=== PATIENT | female | born 1980 | race Two or more races ===

== ENCOUNTER 2017-09-02 02:03 | Emergency (ER) | payer MEDICAID, OTHER ==
[~2017-09-02] VITALS: Ht 165.1 cm; Wt 65.3 kg
[~2017-09-02 02:03] MED LIST: FLUR100T3 PO
[2017-09-02] MEDS ORDERED: METRONIDAZOLE 500 MG TABLET (02:21)
[2017-09-02] MEDS ORDERED: ONDANSETRON ODT 4 MG TAB.RAPDIS SL ONE (02:30)
[2017-09-02] MEDS ORDERED: FAMOTIDINE. 20 MG/2 ML VIAL IV ONE ×2 (02:30→02:51)
[2017-09-02] MEDS ORDERED: KETOROLAC TROMETHAMINE 15 MG INJ IV ONE (02:30)
[2017-09-02] MEDS ORDERED: ONDANSETRON 4 MG/2 ML VIAL ONE (02:50)
[2017-09-02] MEDS ORDERED: KETOROLAC TROMETHAMINE 30 MG INJ ONE (02:50)
[2017-09-02 02:59] LABS: BASOPHILS % (AUTO) 0.5 % (0.0-2.0); EOSINOPHILS # (AUTO) 0.1 K/uL (0.0-0.7); EOSINOPHILS % (AUTO) 1.5 % (0.0-7.0); LYMPHOCYTES # (AUTO) 1.2 K/uL (20.0-40.0); LYMPHOCYTES % (AUTO) 13.9 % (20.5-51.5); MEAN CORPUSCULAR HGB CONC 34 g/dL (32.3-35.6); MEAN CORPUSCULAR VOLUME 84.7 fL (75.5-95.3); MONOCYTES # (AUTO) 0.7 K/uL (2.0-10.0); MONOCYTES % (AUTO) 7.5 % (0.0-11.0); NEUTROPHILS # (AUTO) 6.8 K/uL (1.8-8.9); NEUTROPHILS % (AUTO) 76.6 % (38.5-71.5); PLATELET COUNT (AUTO) 166 K/uL (179-408); RED BLOOD CELL COUNT(AUTO) 4.49 MIL/uL (3.63-4.92); WHITE BLOOD COUNT (AUTO) 8.9 K/uL (3.8-11.8)
[2017-09-02 03:09] LABS: CREATININE 0.7 mg/dL (0.6-1.3); POTASSIUM 4.2 mmol/L (3.5-5.1)
--- NOTE | 2017-09-02 03:13 | NUR ---
PT REPORTING LESS ABDOMINAL PAIN AFTER ADMINISTRATION OF MEDS
[2017-09-02 03:21] LABS: BILIRUBIN,DIRECT 0.1 mg/dL (0.0-0.2); BILIRUBIN,TOTAL 0.3 mg/dL (0.2-1.0); TOTAL PROTEIN, SERUM 7.4 g/dL (6.4-8.2)
--- NOTE | 2017-09-02 03:43 | NUR ---
MD HINDS AT BEDSIDE REASSESSING PT'S SYMPTOMS
[2017-09-02] MEDS ORDERED: HYDROCODONE/APAP 5-325MG TABLET PO ONE (03:45)
[2017-09-02] MEDS ORDERED: HYDROCODONE/APAP 5-325MG TABLET ONE (03:52)
--- NOTE | 2017-09-02 03:55 | NUR ---
US TECH AT BEDSIDE. PT IN BED. PT IS CALM AND COOPERATIVE. NO SIGNS OF DISTRESS WITNESSED AT THIS TIME.
--- NOTE | 2017-09-02 05:05 | NUR ---
Patient discharged to home in stable conditon. Patient reported being without abdominal pain prior to discharge. Written and verbal after care instructions given. Patient verbalizes understanding of instructions. Patient able to ambulate unassisted with steady gait. Patient left with all personal belongings.
[2017-09-02 05:21] VITALS: BP 112/74
== END 2017-09-02 05:05 | disposition home or self-care (01) ==
LOC: ER 02:07
DX: R10.13 Epigastric pain (principal); Z88.5 Allergy status to narcotic agent; Z79.899 Other long term (current) drug therapy
CPT/HCPCS: 36415; 83690; 84703; 85025; A4663; J1885; J2405; J3490; J7030

== ENCOUNTER 2018-02-16 20:13 | Emergency (ER) | payer OTHER ==
[~2018-02-16] VITALS: Ht 167.6 cm; Wt 63.5 kg
[~2018-02-16 20:13] MED LIST changes: -FLUR100T3 PO; +METRONIDAZOLE 500 MG TABLET
[2018-02-16] MEDS ORDERED: IBUPROFEN 600 MG TABLET PO ONE (20:45)
[2018-02-16] MEDS ORDERED: PHENAZOPYRIDINE HCL 100 MG TABLET PO ONE (20:45)
[2018-02-16] MEDS ORDERED: ONDANSETRON ODT 4 MG TAB.RAPDIS SL ONE (20:45)
[2018-02-16 20:46] LABS: *BILIRUBIN,URIN NEGATIVE (NEGATIVE); *BLOOD, URINE 1+ (NEGATIVE); *COLOR,URINE YELLOW (YELLOW); *KETONES,URINE NEGATIVE (NEGATIVE); *PROTEIN,URINE NEGATIVE (NEGATIVE); *UROBILINOGEN,URINE 0.2 E.U./dl (NORMAL); LEUKOCYTE ESTERASE ,URINE TRACE (NEGATIVE); NITRITE, URINE NEGATIVE (NEGATIVE); PH,URINE 8.5 (5.0-8.0); UGLUCOSE NEGATIVE (NEGATIVE)
[2018-02-16 20:48] LABS: *URINE HCG, QUAL NEGATIVE (NEGATIVE)
[2018-02-16] MEDS ORDERED: ONDANSETRON ODT 4 MG TAB.RAPDIS ONE (20:50)
[2018-02-16 20:51] LABS: *CLARITY,URINE SLIGHTLY HAZY (CLEAR)
[2018-02-16] MEDS ORDERED: PHENAZOPYRIDINE HCL 100 MG TABLET ONE (20:51)
[2018-02-16] MEDS ORDERED: IBUPROFEN 600 MG TABLET ONE (20:51)
[2018-02-16 20:52] LABS: BACTERIA,URINE FEW /HPF (NONE SEEN); MUCUS,URINE MODERATE /LPF (0-FEW); SQUAMOUS EPITHELIAL CELL,UR MODERATE /HPF (NONE SEEN); URINE AMORPHOUS PHOSPHATES MODERATE /HPF
--- NOTE | 2018-02-16 21:03 | NUR ---
Patient discharged to home in stable conditon. Written and verbal after care instructions given. Patient verbalizes understanding of instructions.
[2018-02-16 21:05] VITALS: BP 128/79
== END 2018-02-16 21:05 | disposition home or self-care (01) ==
LOC: ER 20:15
DX: R10.9 Unspecified abdominal pain (principal); Z88.5 Allergy status to narcotic agent; Z79.899 Other long term (current) drug therapy
CPT/HCPCS: 84703; A4663; Q0162

== ENCOUNTER 2022-02-20 14:23 | Emergency (ER) | payer SELFPAY ==
[~2022-02-20] VITALS: Ht 167.6 cm; Wt 68.9 kg
[2022-02-20 15:43] LABS: *BILIRUBIN,URIN NEGATIVE (NEGATIVE); *CLARITY,URINE CLEAR (CLEAR); *COLOR,URINE YELLOW (YELLOW); *KETONES,URINE NEGATIVE (NEGATIVE); *UROBILINOGEN,URINE 0.2 E.U./dl (NORMAL); LEUKOCYTE ESTERASE ,URINE 1+ (NEGATIVE); NITRITE, URINE NEGATIVE (NEGATIVE); UGLUCOSE NEGATIVE (NEGATIVE)
[2022-02-20] MEDS ORDERED: KETOROLAC TROMETHAMINE 15 MG INJ IVP ONE (15:45)
[2022-02-20] MEDS ORDERED: IV NORMAL SALINE 1000 ML BAG IV ONE (15:45)
[2022-02-20] MEDS ORDERED: CEFTRIAXONE 1 G in IV DEXTROSE 5% 50 ML IV ONE (15:45)
--- NOTE | 2022-02-20 15:49 | NUR ---
[employer] assumes care:1st contact with patient: AOx4, calm & breathing easily, c/o RLQ, right flank and right lower back pains for 6 days, +nausea, denies vomiting or diarrhea.
[2022-02-20] MEDS ORDERED: SWABABLE VALVE TRANSFER SET EA MC ONE (15:55)
[2022-02-20] MEDS ORDERED: IOHEXOL 300MG/ML 100 ML INFUS..BTL ONE (15:55)
[2022-02-20] MEDS ORDERED: IV NORMAL SALINE 250 ML IV ONE (15:55)
[2022-02-20 16:05] LABS: HEMATOCRIT 37.3 % (31.2-41.9); MEAN CORPUSCULAR HEMOGLOBIN 28.3 uug (24.7-32.8); MEAN CORPUSCULAR VOLUME 85.1 fL (75.5-95.3); PLATELET COUNT (AUTO) 187 K/uL (179-408)
[2022-02-20 16:20] LABS: BILIRUBIN,DIRECT 0.1 mg/dL (0.0-0.2); BILIRUBIN,TOTAL 0.4 mg/dL (0.2-1.0); CREATININE 0.8 mg/dL (0.6-1.3); TOTAL PROTEIN, SERUM 7.8 g/dL (6.4-8.2)
[2022-02-20] MEDS ORDERED: KETOROLAC TROMETHAMINE 15 MG INJ ONE (16:26)
[2022-02-20] MEDS ORDERED: CEFTRIAXONE 1 G VIAL ONE (16:26)
[2022-02-20 16:27] LABS: *BLOOD, URINE TRACE (NEGATIVE)
[2022-02-20 16:33] LABS: RBC,URINE 0-3 /HPF (0-3)
[2022-02-20 16:34] LABS: BACTERIA,URINE FEW /HPF (NONE SEEN); SQUAMOUS EPITHELIAL CELL,UR FEW /HPF (NONE SEEN)
[2022-02-20 16:51] LABS: *URINE HCG, QUAL NEGATIVE (NEGATIVE)
--- NOTE | 2022-02-20 18:24 | NUR ---
Patient is resting comfortably on gurney,pending results and disposition, NAD. No acute change in condition seen.
--- NOTE | 2022-02-20 19:14 | NUR ---
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 Nursing SBAR given to charge weigher Adrian.
--- NOTE | 2022-02-20 19:14 | NUR ---
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 Patient is waiting for an accepting telemetry nurse from 3rd floor. Nursing SBAR given to charger Adrian.
[2022-02-20] MEDS ORDERED: METR500T PO (19:19)
[2022-02-20] MEDS ORDERED: DOXY-326 PO (19:19)
[2022-02-20] MEDS ORDERED: CEFU500T66 PO (19:21)
--- NOTE | 2022-02-20 20:00 | NUR ---
IV removed. Catheter intact and site benign. Pressure and 4x4 gauze applied to site. No bleeding noted.
--- NOTE | 2022-02-20 20:28 | NUR ---
Patient discharged to home in stable condition WITH FAMILY TAKING PATIENT HOME. Written and verbal after care instructions given. Patient verbalizes understanding of instructions. Stressed follow up or return to ER for worsening s/s.
[2022-02-20 20:29] VITALS: BP 130/88
== END 2022-02-20 20:29 | disposition home or self-care (01) ==
LOC: ER 14:23
DX: N73.9 Female pelvic inflammatory disease, unspecified (principal); N20.0 Calculus of kidney; N83.202 Unspecified ovarian cyst, left side; Z88.6 Allergy status to analgesic agent
CPT/HCPCS: 99285; 74177; 96365; 96375; 86592; 80076; 80048; 81001; 87806; 84703; 85025; 87040 ×2; 87210; 36415; 83605; J0696; J1885; Q9967; J7040; A4663